=== PATIENT | male | born 1950 | race Caucasian/White ===

== ENCOUNTER 2018-01-25 01:55 | Emergency (ER) | payer OTHER ==
[~2018-01-25] VITALS: Ht 177.8 cm; Wt 111.1 kg
[2018-01-25 02:08] VITALS: BP_SYST 167
--- NOTE | 2018-01-25 02:08 | NUR ---
Patient to ER bed 8 to gown for evaluation. Side rails up. Report given to Micky COOPER.
--- NOTE | 2018-01-25 02:10 | NUR ---
Patient ambulatory to ED a/o x 4 with c/o left eye deformity. Presents with erythema and discharge x 2 hours. Reports waking up with deformity. Denies recent trauma or injury. Visual accuity 20/25 bilaterally.
--- NOTE | 2018-01-25 02:18 | NUR ---
ED MD Wright at bedside for medical evaluation.
[2018-01-25 02:50] VITALS: BP_SYST 158
--- NOTE | 2018-01-25 02:50 | NUR ---
Patient given written and verbal discharge instructions and verbalizes understanding. ER MD discussed with patient the results and treatment provided. Patient in stable condition. ID arm band removed. Rx of artificial tears ophthalmic solution given. Patient educated on pain management and to follow up with PMD. Pain Scale 0/10. Opportunity for questions provided and answered.
== END 2018-01-25 02:50 | disposition home or self-care (01) ==
LOC: SED 01:55
DX: H11.32 Conjunctival hemorrhage, left eye (principal); I25.2 Old myocardial infarction; I10 Essential (primary) hypertension
CPT/HCPCS: 99283